=== PATIENT | male | born 1955 | race Caucasian/White ===

== ENCOUNTER 2024-01-18 14:52 | Emergency (ER) | payer OTHER ==
[2024-01-18 15:53] VITALS: BP 131/90; PULSE 91; RESP 20; TEMP 98.9; BMI 26.3
[2024-01-18] MEDS ORDERED: ACETAMINOPHEN 325 MG TABLET (FP) ONE (17:55)
[2024-01-18] MEDS ORDERED: guaiFENesin/D-METHORPHAN HB 10 ML UNIT-DOSE CUPS ONE (17:55)
[2024-01-18] MEDS ORDERED: predniSONE 20 MG TABLET (UD) ONE (17:55)
[2024-01-18] MEDS: predniSONE 20 MG TABLET (UD) PO ONE (17:58)
[2024-01-18] MEDS: ACETAMINOPHEN 325 MG TABLET (FP) PO ONE (17:58)
[2024-01-18] MEDS: guaiFENesin/D-METHORPHAN HB 10 ML UNIT-DOSE CUPS PO ONE (17:58)
== END 2024-01-18 18:15 | disposition home or self-care (01) ==
LOC: JERFT 14:52 → JER 14:52 → JERFT 18:15
DX: J10.1 Influenza due to other identified influenza virus with other respiratory manifestations (principal); J40 Bronchitis, not specified as acute or chronic; R05.9 Cough, unspecified; R09.81 Nasal congestion; M79.10 Myalgia, unspecified site; R07.89 Other chest pain; Z20.822 Contact with and (suspected) exposure to COVID-19
CPT/HCPCS: 0241U-QW; 71046-TC-FY; 93005; 93010; 99285-25